=== PATIENT | male | born 1965 | race Caucasian/White ===

== ENCOUNTER 2020-03-04 10:07 | Emergency (ER) | payer MEDICAID ==
[~2020-03-04] VITALS: Ht 172.7 cm; Wt 62.7 kg
[2020-03-04 10:11] VITALS: BP 98/65
== END 2020-03-04 11:38 | disposition home or self-care (01) ==
LOC: EMS 10:07
DX: K04.7 Periapical abscess without sinus (principal); F20.9 Schizophrenia, unspecified
CPT/HCPCS: 99283; Z7502

== ENCOUNTER 2023-07-06 10:53 | Inpatient (IN) | payer MEDICAID ==
[~2023-07-06] VITALS: Ht 172.7 cm; Wt 70.3 kg
[2023-07-06] MEDS ORDERED: ZOLPIDEM TARTRATE 10 MG TABLET PO PRN (13:15)
[2023-07-06] MEDS ORDERED: LORazepam 2 MG TABLET PO PRN (13:15)
[2023-07-06] MEDS ORDERED: OLANZapine 5 MG RAPDIS TABLET PO PRN (13:15)
[2023-07-06 13:30] LABS: APPEARANCE,URINE CLEAR (CLEAR); BILIRUBIN,URINE NEGATIVE (NEGATIVE); COLOR,URINE YELLOW (YELLOW); GLUCOSE, URINE (UA) NEGATIVE (NEGATIVE); KETONES,URINE NEGATIVE (NEGATIVE); LEUKOCYTE ESTERASE ,URINE NEGATIVE (NEGATIVE); NITRATE,URINE NEGATIVE (NEGATIVE); OCCULT BLOOD,URINE SMALL (NEGATIVE); PH,URINE 5.5 (5.0-8.0); PROTEIN,URINE 30-70 mg/dL (NEGATIVE); SPECIFIC GRAVITIY, URINE 1.034 (1.003-1.030)
[2023-07-06 13:51] LABS: BACTERIA,URINE None Seen /HPF (None Seen); CALCIUM OXALATE CRYSTALS,UR Many /LPF (None Seen); RBC,URINE 0-2 /HPF (0-2); SQUAMOUS EPITHELIAL CELL,UR Few /LPF (None Seen); WBC,URINE None Seen /HPF (0-5)
[2023-07-06 15:02] LABS: BASOPHILS % (AUTO) 0.9 % (0.0-2.0); EOSINOPHILS % (AUTO) 0.8 % (1.0-6.0); HEMATOCRIT 44.8 % (41-53); HEMOGLOBIN 15.1 g/dL (13.5-17.5); LYMPHOCYTES % (AUTO) 19.8 % (22.0-44.0); MEAN CORPUSCULAR HEMOGLOBIN 30.7 pg (26.0-34.0); MEAN CORPUSCULAR HGB CONC 33.7 G/dL (31.0-37.0); MEAN CORPUSCULAR VOLUME 91 fL (80-100); MONOCYTES # (AUTO) 1.4 K/uL (0.1-1.0); MONOCYTES % (AUTO) 14.4 % (2.0-9.0); NEUTROPHILS # (AUTO) 6.4 K/uL (1.8-7.7); NEUTROPHILS % (AUTO) 64.1 % (40.0-70.0); PLATELET COUNT (AUTO) 322 K/uL (150-450); RED BLOOD CELL COUNT(AUTO) 4.92 MIL/uL (4.50-5.90); RED CELL DISTRIBUTION WIDTH 13.4 % (11.5-14.5)
[2023-07-06 15:10] LABS: ANION GAP 10 mmol/L (8-16); CALCIUM, TOTAL 8.5 mg/dL (8.8-10.5); CARBON DIOXIDE 29 mmol/L (22-29); CHLORIDE 105 mmol/L (98-107); CREATININE 0.85 mg/dL (0.60-1.30); GLOMERULAR FILTR. RATE CALC > 60 mL/min (>60); GLUCOSE,RANDOM 110 mg/dL (70-110); POTASSIUM 4.3 mmol/L (3.5-5.1); SODIUM SERUM 144 mmol/L (136-145); UREA NITROGEN, BLOOD 17 mg/dL (7-18)
[2023-07-06 15:16] LABS: ALANINE AMINOTRANSFERASE 60 U/L (12-78); ALBUMIN 2.8 g/dL (3.4-5.0); ALKALINE PHOSPHATASE 91 U/L (46-116); ASPARTATE AMINOTRANSFERASE 28 U/L (15-37); BILIRUBIN,TOTAL 0.7 mg/dL (0.1-1.0); TOTAL PROTEIN, SERUM 6.7 g/dL (6.4-8.2)
[2023-07-06 15:22] LABS: ALCOHOL, BLOOD (SERUM) < 3 mg/dL (0-10)
[2023-07-06 16:06] LABS: COVID AG,FIA SOURCE NASAL SWAB
[2023-07-06 16:29] LABS: SARS-COV2 (COVID) ANTIGEN,FIA Negative (Negative)
[2023-07-06] MEDS ORDERED: MAG HYDROX/ALUMINUM HYD/SIMETH ES 30 ML SUSPENSION UDCUP PO PRN (22:00)
[2023-07-06] MEDS ORDERED: GuaiFENesin/D-METHORPHAN [SUGAR-FREE] 200-20MG/10 ML SYRUP UDCUP PO PRN (22:00)
[2023-07-06] MEDS ORDERED: MAGNESIUM HYDROXIDE SUSPENSION 30 ML UDCUP PO PRN (22:00)
[2023-07-06] MEDS ORDERED: PROMETHAZINE HCL 25 MG TABLET PO PRN (22:00)
[2023-07-06] MEDS ORDERED: HydrOXYzine PAMOATE 50 MG CAPSULE PO PRN (22:00)
[2023-07-06] MEDS ORDERED: LOPERAMIDE HCL 2 MG CAPSULE PO PRN (22:00)
[2023-07-06] MEDS ORDERED: ACETAMINOPHEN 325 MG TABLET PO PRN (22:00)
[2023-07-06] MEDS ORDERED: TUBERCULIN, PURIFIED PROTEIN DERIVATIVE 5 TU/0.1 ML SYRINGE ID ONE (22:00)
[2023-07-06 22:10] VITALS: BP 117/74; PULSE 98; RESP 18; TEMP 98; O2SAT 95
[2023-07-07 08:35] VITALS: BP 123/71; PULSE 82; RESP 18; TEMP 98.2; O2SAT 98
[2023-07-07] MEDS: OLANZapine 5 MG RAPDIS TABLET PO SCH ×2 (08:45→20:35)
[2023-07-07] MEDS: MULTIVITAMINS WITH MINERALS, THERAPEUTIC TABLET PO SCH (08:45)
[2023-07-07] MEDS: FOLIC ACID 1 MG TABLET PO SCH (08:45)
[2023-07-07] MEDS: OMEGA-3/DHA/EPA/FISH OIL 1,000 MG CAPSULE PO SCH (08:46)
[2023-07-07] MEDS: THIAMINE 100 MG TABLET PO SCH (08:46)
[2023-07-07] MEDS: NALTREXONE HCL 50 MG TABLET PO SCH (09:00)
[2023-07-07 20:20] VITALS: BP 135/77; PULSE 70; RESP 18; TEMP 97.9; O2SAT 97
[2023-07-07] MEDS: MELATONIN 5 MG TABLET PO SCH (20:35)
[2023-07-08 08:39] VITALS: BP 106/66; PULSE 82; RESP 18; TEMP 97.6; O2SAT 96
[2023-07-08 20:30] VITALS: BP 145/103; PULSE 77; RESP 20; TEMP 98.7; O2SAT 90
[2023-07-09 08:35] VITALS: BP 106/67; PULSE 87; RESP 18; TEMP 98.3; O2SAT 97
[2023-07-09] MEDS: OLANZapine 10 MG RAPDIS TABLET PO SCH (20:01)
[2023-07-09 20:43] VITALS: BP 142/49; PULSE 81; RESP 17; TEMP 97.7; O2SAT 97
[2023-07-10 09:03] VITALS: BP 128/87; PULSE 98; RESP 18; TEMP 97.5; O2SAT 97
[2023-07-10] MEDS: TRIHEXYPHENIDYL HCL 2 MG TABLET PO SCH (16:48)
[2023-07-10 20:40] VITALS: BP 136/86; PULSE 82; RESP 18; TEMP 97.6
[2023-07-10] MEDS: PARoxetine HCL 20 MG TABLET PO SCH (21:00)
[2023-07-11 09:08] VITALS: BP 110/74; PULSE 111; RESP 17; TEMP 97.7; O2SAT 96
[2023-07-11 20:59] VITALS: BP 131/82; PULSE 93; RESP 18; TEMP 97.9; O2SAT 97
[2023-07-12 08:20] VITALS: BP 138/61; PULSE 68; RESP 16; TEMP 97.4; O2SAT 96
[2023-07-12 20:17] VITALS: BP 113/69; PULSE 76; RESP 16; TEMP 97.8; O2SAT 97
[2023-07-13 08:44] VITALS: BP 126/74; PULSE 103; RESP 18; TEMP 98.2; O2SAT 98
[2023-07-13 20:23] VITALS: BP 111/66; PULSE 80; RESP 16; TEMP 98.2; O2SAT 97
[2023-07-14 09:09] LABS: PH,URINE DRUG SCREEN 6.5 (5.0-8.0)
[2023-07-14 09:18] LABS: ALCOHOL, URINE DRUG SCREEN NEGATIVE (NEGATIVE); AMPHET/METH SCREEN,URINE NEGATIVE (NEGATIVE); BARBITURATE SCREEN, URINE NEGATIVE (NEGATIVE); BENZODIAZEPINES SCREEN,URINE NEGATIVE (NEGATIVE); CANNABINOID SCREEN,URINE NEGATIVE (NEGATIVE); COCAINE SCREEN,URINE NEGATIVE (NEGATIVE); METHADONE SCREEN, URINE NEGATIVE (NEGATIVE); OPIATE SCREEN,URINE NEGATIVE (NEGATIVE); PHENCYCLIDINE SCREEN,URINE NEGATIVE (NEGATIVE)
[2023-07-14 09:35] VITALS: BP 108/73; PULSE 98; RESP 17; TEMP 97.7; O2SAT 97
[2023-07-14] MEDS: PARoxetine HCL 10 MG TABLET PO SCH (21:00)
[2023-07-14 21:18] VITALS: BP 126/75; PULSE 81; RESP 18; TEMP 97; O2SAT 98
[2023-07-15] MEDS: PALIPERIDONE PALMITATE 234 MG/1.5 ML SYRINGE IM ONE (10:20)
[2023-07-15 12:50] VITALS: BP 122/80; PULSE 81; RESP 18; TEMP 97.8; O2SAT 96
[2023-07-15 14:13] VITALS: BP 122/80; PULSE 81; RESP 18; TEMP 97.8; O2SAT 96
[2023-07-15 21:15] VITALS: RESP 18
[2023-07-15] MEDS: OLANZapine 10 MG RAPDIS TABLET PO SCH (21:36)
[2023-07-16 09:00] VITALS: BP 140/78; PULSE 99; RESP 18; TEMP 97.6; O2SAT 96
[2023-07-17 17:36] VITALS: RESP 18
[2023-07-19] MEDS ORDERED: PALIPERIDONE PALMITATE 156 MG/ML SYRINGE IM ONE (09:00)
[2023-07-19 10:24] VITALS: RESP 18
[2023-07-20 08:52] VITALS: BP 103/74; PULSE 109; RESP 18; TEMP 98.3; O2SAT 97
[2023-07-20 09:30] VITALS: PULSE 100
[2023-07-20] MEDS ORDERED: OLAN10TA26 PO (15:44)
[2023-07-20] MEDS ORDERED: NALT50TA33 PO (15:44)
[2023-07-20 20:52] VITALS: RESP 16
== END 2023-07-21 10:05 | disposition home or self-care (01) | DRG 750 ==
LOC: EMS 10:53 → B2S 16:07
PROVIDERS: ADMIT Psychiatry & Neurology Psychiatry; ATTEND Psychiatry & Neurology Psychiatry
PROC: GZHZZZZ Group Psychotherapy (ICD-10-PCS; principal; 2023-07-07)
PROC: GZ58ZZZ Individual Psychotherapy, Cognitive-Behavioral (ICD-10-PCS; 2023-07-07)
DX: F25.0 Schizoaffective disorder, bipolar type (principal); E46 Unspecified protein-calorie malnutrition; F17.210 Nicotine dependence, cigarettes, uncomplicated; Z20.822 Contact with and (suspected) exposure to COVID-19; F15.20 Other stimulant dependence, uncomplicated; F12.20 Cannabis dependence, uncomplicated; F10.20 Alcohol dependence, uncomplicated; S00.91XA Abrasion of unspecified part of head, initial encounter; S60.512A Abrasion of left hand, initial encounter; S60.511A Abrasion of right hand, initial encounter; X58.XXXA Exposure to other specified factors, initial encounter; Y93.89 Activity, other specified; Y92.89 Other specified places as the place of occurrence of the external cause; Y99.8 Other external cause status; Z91.51 Personal history of suicidal behavior; Z59.00 Homelessness unspecified; Z91.199 Patient's noncompliance with other medical treatment and regimen due to unspecified reason; Z68.23 Body mass index [BMI] 23.0-23.9, adult
CPT/HCPCS: 80053; 80307; 81001; 85025; 99285; G0480; Q9967